=== PATIENT | male | born 1975 | race Caucasian/White ===

== ENCOUNTER 2025-01-20 11:53 | Observation (INO) | payer OTHER, SELFPAY ==
[2025-01-20] VITALS (31 sets, daily range): BP systolic 125–178; BP diastolic 80–108; PULSE 60–88; TEMP 36.5–36.8; O2SAT 68–100; BMI 47.4; BMI 46.8
--- NOTE | 2025-01-20 12:21 | CT_ITS ---
The [address] [address] Patient Name: ANI RAMAN MRN: [id number] date: 1975 Sex: M Assigned Patient Location: ED.MAIN Current Patient Location: ED.MAIN Accession/Order Number: [id number] Exam Date: 01/20/2025 13:12 Report Date: 01/20/2025 13:57 At the request of: MICHAEL ALVARENGA Procedure: CT angio head CT angio head 01/20/2025 1:24 PM SIGNS AND SYMPTOMS: ^altered mental status CONTRAST: 100 mL of intravenous Omnipaque 350 TECHNIQUE: Multi-detector CT angiography axial slices of the head were obtained before and during intravenous administration of IV contrast material. Sagittal, coronal, and 3-D reconstructions were performed and viewed on a separate workstation. CT was performed with one or more of the following dose reduction techniques: Automated exposure control, adjustment of the mA and/or kV according to patient size, or use of iterative reconstruction technique. Stenoses were measured using the NASCET criteria. COMPARISON: 01/20/2025 FINDINGS: The superior cerebellar arteries, posterior inferior cerebellar arteries, and the basilar artery are within normal limits. The posterior cerebral arteries are unremarkable. The intracranial segments of the internal carotid arteries are within normal limits. There are normal anterior and middle cerebral arteries. Anterior communicating artery is patent. The left posterior communicating artery is hypoplastic. This is a normal variant. The deep venous system and dural venous systems appear to be patent. No bony abnormalities are appreciated. CT/CT angio head IMPRESSION: No evidence of focal stenosis, aneurysmal dilatation, dissection or occlusion. Impression dictated by: Luis Felipe Zee M.D. 01/20/2025 1:57 PM Dictation Location: [place] [address] Electronically authenticated by: [id number] Y Date: 01/20/2025 13:57
--- NOTE | 2025-01-20 12:21 | CT_ITS ---
The [address] [address] Patient Name: ANI RAMAN MRN: [id number] date: 1975 Sex: M Assigned Patient Location: ER Current Patient Location: .MAIN Accession/Order Number: [id number] Exam Date: 01/20/2025 13:12 Report Date: 01/20/2025 13:38 At the request of: MICHAEL ALVARENGA Procedure: CT head/brain wo con CT BRAIN WITHOUT CONTRAST: CLINICAL HISTORY: altered mental status COMPARISON: None TECHNIQUE: Contiguous axial unenhanced images were obtained through the brain. This CT exam was performed using one or more following dose reduction techniques: Automated exposure control, adjustment of the mA and/or kV according to patient size, or use of iterative reconstruction technique. FINDINGS: There is no evidence of midline shift, intra or extra-axial fluid collection, hemorrhage or CT evidence of stroke. Cortical atrophy with chronic microvascular ischemic changes. There appears to be an indeterminate hypodensity involving the right basal ganglia. Posterior fossa appears unremarkable. Visualized intraorbital contents demonstrate no acute findings. Visualized paranasal sinuses are clear. The surrounding soft tissues are normal. CT/CT head/brain wo con IMPRESSION: INDETERMINATE HYPODENSITY INVOLVING THE RIGHT BASAL GANGLIA. IF ISCHEMIA IS OF CLINICAL CONCERN, FURTHER EVALUATION WITH MRI IS SUGGESTED. Impression dictated by: Roderick Avery Jr., D.O. 01/20/2025 1:38 PM Dictation Location: [place] [address] Electronically authenticated by: [id number] Y Date: 01/20/2025 13:38
--- NOTE | 2025-01-20 12:21 | ECG_ITS ---
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 Measurements Intervals [place] Rate: 77 P: 53 [place]: 162 QRS: 80 QRSD: 98 T: 51 QT: 394 QTc: 426 Interpretive Statements 1100 Sinus rhythm 9110 normal ECG No previous ECG available for comparison Electronically Signed On 01-21-2025 7:31:07 EDT by EARNEST TABARES M.D.
[2025-01-20] MEDS: 0.9 % SODIUM CHLORIDE 1,000 ML 1000 ML IV (12:36)
--- NOTE | 2025-01-20 12:38 | ED.AMS1 ---
HPI - Altered Mental Status General Chief Complaint: Altered Mental Status Stated Complaint: confusion Time Seen by Provider: 01/20/25 12:05 Source: patient Mode of arrival: walk-in History of Present Illness HPI narrative: 49-year-old male with history of obesity, depression, PTSD, hypertension, hyperlipidemia, and seasonal allergies presents to the ED with a new-onset dissociative sensation starting early this morning.. He describes the feeling as being outside of reality and perceiving a delay between what he sees and hears. He also reports feeling as though he is floating. He denies visual or auditory hallucinations, weakness, numbness, speech difficulty, dizziness, headache, chest pain, shortness of breath, or recent head injury. He reports regular alcohol use (approx 6 drinks nightly, last drink midnight last night), nightly trazodone use, and nightly THC gummies (no recent brand/type change). No recent medication or supplement changes. He has a history of elevated bilirubin, attributed to a likely genetic cause, without known liver disease. He has been awake for >19 hours with decreased fluid intake. He reports drinking his usual daily coffee more quickly than normal this morning. No fever, chills, or recent illness. He is in town traveling for work, staying in a hotel, and is here alone. He expresses concern about the new symptoms, which he has never experienced before. Related Data Home Medications ?Medication ?Instructions ?Recorded ?Confirmed atorvastatin 40 mg tablet 40 mg PO DAILY 01/20/25 01/20/25 finasteride 1 mg tablet 1 mg PO DAILY 01/20/25 01/20/25 fluoxetine 40 mg capsule 40 mg PO DAILY 01/20/25 01/20/25 hydroxyzine HCl 50 mg tablet 50 mg PO BEDTIME 01/20/25 01/20/25 metoprolol tartrate 100 mg tablet 200 mg PO DAILY 01/20/25 01/20/25 (Lopressor) montelukast 10 mg tablet 10 mg PO DAILY 01/20/25 01/20/25 tirzepatide (weight loss) 15 15 mg subcut QWEEK 01/20/25 01/20/25 mg/0.5 mL subcutaneous pen injector (Zepbound) Allergies Allergy/AdvReac Type Severity Reaction Status Date / Time erythromycin base Allergy Rash Verified 01/20/25 12:00 [facility] Medical History (Updated 01/20/25 @ 17:27 by Isabela Bell RN) H/O ETOH abuse ?F10.11 - Alcohol abuse, in remission (ICD-10) High triglycerides ?E78.1 - Pure hyperglyceridemia (ICD-10) PTSD (post-traumatic stress disorder) ?F43.10 - Post-traumatic stress disorder, unspecified (ICD-10) Hypertension ?I10 - Essential (primary) hypertension (ICD-10) Social History (Updated 01/20/25 @ 18:49 by Shivani Watters) Within the past year, how often did you have a drink containing alcohol: 4 or more times a week Within the past year, how many standard drinks containing alcohol did you have on a typical day: 5 or 6 Within the past year, how often did you have six or more drinks on one occasion: monthly Total score: 6 Score interpretation: A score of 4 or more indicates drinking is likely to affect patient's safety. Smoking status: Former smoker Non-prescribed substance use: cannabis (any form) Non-prescribed substance use details: 50mg gummies. Once a day at night Highest level of school completed/degree received: Master's degree In a typical week, how many times do you talk on the telephone with family, friends, or neighbors: 3 or more times per week How often do you get together with friends or relatives: once per week How often do you attend restorationist or temple services: 1-3 times per year Do you belong to any clubs or organizations such as restorationist groups unions, fraternal or athletic groups, or school groups: yes Little interest or pleasure in doing things: not at all Feeling down, depressed, or hopeless: not at all Feel stressed/tense/nervous/anxious/difficulty sleeping: to some extent Exam Narrative Exam Narrative: General: Alert, oriented ?4, interactive, in no acute distress Neuro: No focal deficits. Speech fluent, cranial nerves II?XII intact, strength 5/5 throughout, sensation intact, coordination normal, normal gait. HEENT: Pupils equal, round, reactive to light; no nystagmus Cardiac: Regular rate and rhythm, no murmurs Respiratory: Lungs clear to auscultation bilaterally Abdomen: Soft, non-tender, non-distended Extremities: Good pulses, good cap refill, no edema Skin: No rash, no jaundice noted Constitutional Vital Signs, click to edit/add: Last Vital Signs Temp 98.2 F 01/20/25 17:56 Pulse 73 01/20/25 20:00 Resp 18 01/20/25 17:56 BP 162/90 H 01/20/25 18:07 Pulse Ox 94 L 01/20/25 17:56 O2 Del Method Room Air 01/20/25 17:56 Course Vital Signs Vital signs: Vital Signs Temperature 98.2 F 01/20/25 12:00 Pulse Rate 83 01/20/25 12:00 Respiratory Rate 18 01/20/25 12:00 Blood Pressure 178/108 H 01/20/25 12:00 Pulse Oximetry 97 01/20/25 12:00 Oxygen Delivery Method Room Air 01/20/25 12:00 Temperature 98.2 F 01/20/25 17:56 Pulse Rate 73 01/20/25 20:00 Respiratory Rate 18 01/20/25 17:56 Blood Pressure 162/90 H 01/20/25 18:07 Pulse Oximetry 94 L 01/20/25 17:56 Oxygen Delivery Method Room Air 01/20/25 17:56 MDM - Altered Mental Status MDM Narrative Medical decision making narrative: This patient presents with acute onset dissociative sensation and perception changes without objective neurologic deficits on exam. 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 causes: acute ischemic stroke/TIA (particularly affecting basal ganglia or thalamus), seizure or postictal state (no history of seizure or seizure like activity), metabolic encephalopathy (normal labs), brain tumor or space occupying lesion, aneurysm (normal CTA) Toxic/metabolic: alcohol withdrawal or intoxication (unlikely with negative ethanol), THC effects, trazodone interaction, electrolyte abnormalities, hepatic encephalopathy (unlikely with normal labs) Psychiatric: derealization episode, anxiety/panic-related dissociation, PTSD Other: sleep deprivation, dehydration, medication or caffeine effect Workup today included CBC, CMP, urine tox, ethanol level, all of which were unremarkable except for positive THC. CT head revealed an area of hypoattenuation in the basal ganglia concerning for possible ischemic change. Discussed case with stroke neurology, who recommended admission for further workup and MRI brain. No concern for the need for stroke intervention Patient is hemodynamically stable, neurologically intact on exam, and agrees with plan for admission for MRI and neurologic monitoring. Medical Records Attestation: I reviewed the patient's medical records. Lab Data Attestation: I reviewed the patient's lab results. Labs: Lab Results 01/20/25 01/20/25 01/20/25 Range/Units 12:12 12:17 12:52 WBC 6.4 (4.0-11.0) 10^3/uL RBC 4.70 (4.70-6.10) 10^6/uL Hgb 14.4 (14.0-18.0) g/dL Hct 41.8 L (42.0-54.0) % MCV 88.9 (80.0-94.0) fL MCH 30.6 (25.9-34.0) pg MCHC 34.4 (29.9-35.2) g/dL RDW 12.4 (11.0-15.0) % Plt Count 192 (150-450) 10^3/uL MPV 10.7 (9.5-13.5) fL Neut % (Auto) 42.8 L (43.0-75.0) % Lymph % (Auto) 44.7 (20.5-60.0) % [place] % (Auto) 10.0 (1.7-12.0) % Eos % (Auto) 1.7 (0.9-7.0) % Baso % (Auto) 0.6 (0.2-2.0) % Neut # (Auto) 2.7 (1.4-6.5) 10^3/uL Lymph # (Auto) 2.9 (1.2-3.8) 10^3/uL [place] # (Auto) 0.6 (0.3-0.8) 10^3/uL Eos # (Auto) 0.1 (0.0-0.7) 10^3/uL Baso # (Auto) 0.0 (0.0-0.1) 10^3/uL Abs Immat Gran (auto) 0.01 (0.00-0.03) 10^3/uL Imm/Tot Granulo (auto) 0.2 (0.0-0.5) % PT 10.9 (9.0-11.6) sec INR 1.03 Sodium 134 L (136-145) mmol/L Potassium 4.3 (3.5-5.1) mmol/L Chloride 98 (98-107) mmol/L Carbon Dioxide 26.7 (21.0-32.0) mmol/L Anion Gap 13.6 BUN 8.0 (7.0-18.0) mg/dL Creatinine 1.11 (0.70-1.30) mg/dL Est GFR ( Amer) >60 (>=60 mL/min/1.73m^2) Est GFR (Non-Af Amer) >60 (>=60 mL/min/1.73m^2) BUN/Creatinine Ratio 7.2 Glucose 138 H (74-106) mg/dL Calcium 9.2 (8.5-10.1) mg/dL Magnesium 2.0 (1.8-2.4) mg/dL Total Bilirubin 1.4 H (0.2-1.0) mg/dL AST 30 (15-37) U/L ALT 51 (16-63) U/L Alkaline Phosphatase 67 (46-116) U/L Ammonia 22 (11-32) umol/L Troponin I High Sens 5.6 (4.0-76.1) pg/mL Total Protein 8.2 (6.4-8.2) g/dL Albumin 4.7 (3.4-5.0) g/dL Globulin 3.5 g/dL Albumin/Globulin Ratio 1.3 TSH 2.646 (0.358-3.740) uIU/mL Urine Color Yellow (YELLOW) Urine Clarity Clear (CLEAR) Urine pH 6.0 (5.0-9.0) Ur Specific [place] 1.010 (1.005-1.025) Urine Protein Negative (NEG/TRACE) mg/dL Urine Glucose (UA) Negative (NEGATIVE) mg/dL Urine Ketones Negative (NEGATIVE) mg/dL Urine Occult Blood Negative (NEGATIVE) Urine Nitrite Negative (NEGATIVE) Urine Bilirubin Negative (NEGATIVE) Urine Urobilinogen 0.2 (0.2-1.0) EU/dL Ur Leukocyte Esterase Negative (NEGATIVE) Urine RBC 0-2 (0-2) #/HPF Urine WBC None seen (NONE SEEN) #/HPF Ur Squamous Epith Cells Rare (NONE/RARE) #/LPF Urine Crystals None seen (None Seen) #/HPF Urine Bacteria Trace A (NONE SEEN) #/HPF Urine Casts None seen (NONE SEEN) #/LPF Urine Mucus None seen (NONE SEEN) Ur Culture Indicated? No Urine Opiates Screen Negative (NEGATIVE) Ur Buprenorphine Scrn Negative (NEGATIVE) Ur Oxycodone Screen Negative (NEGATIVE) Urine Methadone Screen Negative (NEGATIVE) Acetaminophen <2.0 L (10.0-30.0) ug/mL Ur Barbiturates Screen Negative (NEGATIVE) U Tricyclic Antidepress Negative (NEGATIVE) Ur Phencyclidine Scrn Negative (NEGATIVE) Ur Amphetamines Screen Negative (NEGATIVE) U Methamphetamines Scrn Negative (NEGATIVE) U Benzodiazepines Scrn Negative (NEGATIVE) Urine Cocaine Screen Negative (NEGATIVE) U Cannabinoids Screen Positive A (NEGATIVE) Ethanol Quant <3 mg/dL POC Glucose 147 H (74-106) mg/dL Imaging Data CT scan - head: Attestation: I have reviewed the pertinent imaging results. Radiologist's impression: ITS Impressions Head CT 01/20/25 12:21 IMPRESSION: INDETERMINATE HYPODENSITY INVOLVING THE RIGHT BASAL GANGLIA. IF ISCHEMIA IS OF CLINICAL CONCERN, FURTHER EVALUATION WITH MRI IS SUGGESTED. Impression dictated by: Roderick Avery Jr., D.O. 01/20/2025 1:38 PM Dictation Location: [place] [address] Electronically authenticated by: [id number] Y Date: 01/20/2025 13:38 Head CTA 01/20/25 12:21 IMPRESSION: No evidence of focal stenosis, aneurysmal dilatation, dissection or occlusion. Impression dictated by: Luis Felipe Zee M.D. 01/20/2025 1:57 PM Dictation Location: [place] [address] Electronically authenticated by: [id number] Y Date: 01/20/2025 13:57 ECG Data Attestation: ?I have reviewed the pertinent ECG results. ECG interpretation date: 01/20/25 ECG interpretation time: 12:35 Prior ECG tracings: not available for review Interpretation: Patient is EKG shows sinus rhythm with no ST depression or elevation. He has normal intervals with no ectopy. Patient's OK interval is 162, heart rate is 77, QRS 98, QT/QTc of 394/426. Discharge Plan Discharge Chief Complaint: Altered Mental Status Clinical Impression: Altered mental state, Abnormal CT of the head Patient Disposition: Admitted as Observation Time of Disposition Decision: 16:52 Condition: Good Discharge Date/Time: 01/20/25 18:24
[2025-01-20 12:41] LABS: Hematocrit 41.8 % (42.0-54.0); Hemoglobin 14.4 g/dL (14.0-18.0); Immature Granulocytes Abs Auto 0.01 10^3/uL (0.00-0.03); Immature Granulocytes Pct Auto 0.2 % (0.0-0.5); Lymphocytes Absolute Auto 2.9 10^3/uL (1.2-3.8); Mean Corpuscular HGB Conc 34.4 g/dL (29.9-35.2); Mean Corpuscular Hemoglobin 30.6 pg (25.9-34.0); Mean Corpuscular Volume 88.9 fL (80.0-94.0); Platelet Count 192 10^3/uL (150-450); Red Blood Count 4.70 10^6/uL (4.70-6.10); White Blood Count 6.4 10^3/uL (4.0-11.0)
[2025-01-20 12:54] LABS: INR 1.03; Prothrombin Time 10.9 sec (9.0-11.6)
[2025-01-20 12:56] LABS: Ammonia 22 umol/L (11-32)
[2025-01-20 12:58] LABS: Alanine Aminotransferase 51 U/L (16-63); Albumin Globulin Ratio 1.3; Albumin Level 4.7 g/dL (3.4-5.0); Alkaline Phosphatase 67 U/L (46-116); Anion Gap 13.6; Aspartate Amino Transferase 30 U/L (15-37); Blood Urea Nitrogen 8.0 mg/dL (7.0-18.0); Calcium 9.2 mg/dL (8.5-10.1); Carbon Dioxide 26.7 mmol/L (21.0-32.0); Chloride 98 mmol/L (98-107); Estimated GFR (African America >60 (>=60 mL/min/1.73m^2); Estimated GFR (Non-African Ame >60 (>=60 mL/min/1.73m^2); Globulin 3.5 g/dL; Glucose 138 mg/dL (74-106); Potassium 4.3 mmol/L (3.5-5.1); Sodium 134 mmol/L (136-145); Total Protein 8.2 g/dL (6.4-8.2)
[2025-01-20 13:05] LABS: Acetaminophen <2.0 ug/mL (10.0-30.0); Thyroid Stimulating Hormone 2.646 uIU/mL (0.358-3.740)
[2025-01-20 13:08] LABS: Glucose Urine UA NEGATIVE (NEGATIVE)
[2025-01-20 13:16] LABS: Cannabinoid Screen Urine POSITIVE (NEGATIVE); Methamphetamines Screen Urine NEGATIVE (NEGATIVE); Tricyclic Antidepressant Urine NEGATIVE (NEGATIVE)
[2025-01-20 13:17] LABS: Magnesium 2.0 mg/dL (1.8-2.4)
[2025-01-20 13:24] LABS: Cast Seen? NONE SEEN #/LPF (NONE SEEN); Crystals Seen? None Seen #/HPF (None Seen); Urine Culture Indicated NO
--- NOTE | 2025-01-20 18:03 | XR_ITS ---
The [address] [address] Patient Name: ANI RAMAN MRN: [id number] date: 1975 Sex: M Assigned Patient Location: MS Current Patient Location: MS Accession/Order Number: [id number] Exam Date: 01/20/2025 18:10 Report Date: 01/20/2025 20:35 At the request of: CRISTIAN MORENO MD Procedure: XR chest 1V Single frontal view chest CLINICAL HISTORY: TIA COMPARISON: None Unremarkable cardiomediastinal silhouette. Lungs clear. No effusion or pneumothorax. XR/XR chest 1V IMPRESSION: NEGATIVE FOR ACUTE PLEURAL-PARENCHYMAL DISEASE. Impression dictated by: Rafal Mahmood M.D. 01/20/2025 8:35 PM Dictation Location: [place] [address] Electronically authenticated by: [id number] Y Date: 01/20/2025 20:35
[2025-01-20] MEDS: FOLIC ACID 50 MG/10 ML VIAL IVP (18:43)
[2025-01-20] MEDS: ASPIRIN 325 MG TABLET.DR PO (18:43)
[2025-01-20] MEDS: ENOXAPARIN SODIUM 40 MG/0.4 ML SYRINGE SUBQ (18:43)
[2025-01-20] MEDS: THIAMINE HCL 200 MG/2 ML VIAL IVP (23:17)
[2025-01-20] MEDS: ATORVASTATIN CALCIUM 40 MG TABLET 80 MG PO (23:17)
--- NOTE | 2025-01-21 | MR_ITS ---
The [address] [address] Patient Name: ANI RAMAN MRN: [id number] date: 1975 Sex: M Assigned Patient Location: MS Current Patient Location: MS Accession/Order Number: [id number] Exam Date: 01/21/2025 09:45 Report Date: 01/21/2025 10:46 At the request of: CRISTIAN MORENO MD Procedure: MR head/brain wo con MR head/brain wo con 01/21/2025 10:24 AM SIGN AND SYMPTOMS: Altered mental status, previous imaging showing hypodensity in the right basal ganglia. PROTOCOL: Multiplanar multisequence MR images of the brain without contrast COMPARISON: 925 5. FINDINGS: Extra axial spaces: Age appropriate. Hemorrhage: None. Ventricular system: Within normal limits. Basal cisterns: Within normal limits and not effaced. Cerebral parenchyma: T2 and FLAIR hyperintense signal is noted in the periventricular and subcortical white matter. This is nonspecific. Midline shift: None.. Cerebellum: Within normal limits. Brainstem: Within normal limits. OTHER: Calvarium: Normal marrow signal. Vascular system: Satisfactory flow voids within the anterior and posterior circulation. Visualized Paranasal sinuses: Within normal limits. Visualized Orbits: Within normal limits. Visualized upper cervical spine: Within normal limits. Sella and skull base: Within normal limits. MR/MR head/brain wo con IMPRESSION: No acute intracranial pathology. T2 and FLAIR hyperintense signal is noted in the periventricular and subcortical white matter. This is nonspecific. Impression dictated by: Luis Felipe Zee M.D. 01/21/2025 10:46 AM Dictation Location: [place] [address] Electronically authenticated by: [id number] Y Date: 01/21/2025 10:46
[2025-01-21 01:54] VITALS: PULSE 61
[2025-01-21 03:31] VITALS: BP 133/85; PULSE 54; TEMP 36.8; O2SAT 95
[2025-01-21 03:54] VITALS: PULSE 62
[2025-01-21 05:48] VITALS: PULSE 58
[2025-01-21 07:36] VITALS: BP 149/95; PULSE 18; PULSE 60; TEMP 36.5; O2SAT 98
[2025-01-21 07:54] VITALS: PULSE 62
--- NOTE | 2025-01-21 08:00 | CM.NOTE ---
Rounds made with Dr. Oh, discussed with pt reason for admission and plan of care. Pt will get MRI today. Discussed with Dr. Oh pt's status, pt will remain OBS status.
[2025-01-21] MEDS: ASPIRIN 325 MG TABLET.DR PO (08:42)
[2025-01-21] MEDS: METOPROLOL SUCCINATE 100 MG TAB.ER.24H 200 MG PO (08:42)
[2025-01-21] MEDS: FOLIC ACID 1 MG TABLET PO (08:43)
[2025-01-21] MEDS: FLUOXETINE HCL 20 MG CAPSULE PO (08:43)
[2025-01-21] MEDS: THIAMINE HCL 200 MG/2 ML VIAL IVP (08:43)
[2025-01-21] MEDS: MONTELUKAST SODIUM 10 MG TABLET PO (08:43)
--- NOTE | 2025-01-21 08:55 | PM.HP ---
HPI H&P: HPI History of Present Illness Chief complaint: confusion, ALTERED MENTAL STATUS Narrative: Mr. Jones is a 49-year-old gentleman with a history of hypertension, posttraumatic stress syndrome, hyperlipidemia and obesity. Patient came in yesterday reported not feeling well in terms of his visual and sensory perception. He feels that when he looks at objects they would appear not in the expected position and shape. When he tried to enter his password on the keyboard he could not do it completely. He denies any headaches, slurred speech, focal weakness or numbness. No prior history of stroke. No chest pain or palpitation. No abdominal pain. 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 He is from out of town. He drinks 3-4 alcoholic beverages daily. He smokes marijuana for PTSD. He has a medical card. He admitted that he has not been sleeping well and he is scheduled is off. Opioid HPI Opioid Management Most Recent Pain and Opioid Data: Last Pain Assessment 01/20/25, 18:00 Last ORT Total Score 2 01/20/25, 17:56 Last ORT Risk Category Low Risk 01/20/25, 17:56 Ur Phencyclidine Scrn, (NEGATIVE) Negative 01/20/25, 12:52 Review of Systems ROS Status of ROS 10 or more systems reviewed and unremarkable except as noted in history and below PFS PFS Medical History (Updated 01/21/25 @ 08:59 by Yg Oh MD) H/O ETOH abuse ?F10.11 - Alcohol abuse, in remission (ICD-10) High triglycerides ?E78.1 - Pure hyperglyceridemia (ICD-10) PTSD (post-traumatic stress disorder) ?F43.10 - Post-traumatic stress disorder, unspecified (ICD-10) Social History (Updated 01/20/25 @ 18:49 by Shivani Watters) Within the past year, how often did you have a drink containing alcohol: 4 or more times a week Within the past year, how many standard drinks containing alcohol did you have on a typical day: 5 or 6 Within the past year, how often did you have six or more drinks on one occasion: monthly Total score: 6 Score interpretation: A score of 4 or more indicates drinking is likely to affect patient's safety. Smoking status: Former smoker Non-prescribed substance use: cannabis (any form) Non-prescribed substance use details: 50mg gummies. Once a day at night Highest level of school completed/degree received: Master's degree In a typical week, how many times do you talk on the telephone with family, friends, or neighbors: 3 or more times per week How often do you get together with friends or relatives: once per week How often do you attend congregational or methodist services: 1-3 times per year Do you belong to any clubs or organizations such as congregational groups unions, [employer] or athletic groups, or school groups: yes Little interest or pleasure in doing things: not at all Feeling down, depressed, or hopeless: not at all Feel stressed/tense/nervous/anxious/difficulty sleeping: to some extent Meds Home Medications and Allergies Home Medications ?Medication ?Instructions ?Recorded ?Confirmed ?Type atorvastatin 40 mg tablet 40 mg PO DAILY 01/20/25 01/20/25 History finasteride 1 mg tablet 1 mg PO DAILY 01/20/25 01/20/25 History fluoxetine 40 mg capsule 40 mg PO DAILY 01/20/25 01/20/25 History hydroxyzine HCl 50 mg tablet 50 mg PO BEDTIME 01/20/25 01/20/25 History montelukast 10 mg tablet 10 mg PO DAILY 01/20/25 01/20/25 History tirzepatide (weight loss) 15 15 mg subcut QWEEK 01/20/25 01/20/25 History mg/0.5 mL subcutaneous pen injector (Zepbound) metoprolol succinate 200 mg 200 mg PO .qd 01/21/25 01/21/25 History tablet,extended release 24 hr trazodone 150 mg tablet 150 mg PO .qhs 01/21/25 01/21/25 History Allergies Allergy/AdvReac Type Severity Reaction Status Date / Time erythromycin base Allergy Rash Verified 01/20/25 12:00 Exam Narrative Exam Narrative: [pt is awake and alert. oriented to place, time and person, obese HEENT: [place] conjunctiva and NL buccal mucosa Neck: Supple, no tenderness Endocrine: No Thyromegaly. Vascular: No JVD or carotid bruit. Lymphatic: No cervical lymphadenopathy. Chest: CTA no DTP. Heart RRR, no extra sound or murmur. Abd: Soft, no tenderness, no rebound and no rigidity. Increase abd girth therefore clinically I could not exclude the possibility of intra abd mass or organomegaly. LE: No cyanosis or clubbing, no varices or edema. Neuro: A A O. Nl speech, comprehension and attention. Nl and symetrical motor and tone examination through out. Normal comprehension, normal focus, normal speech, normal attention span. No nystagmus. Symmetrical facial musculature. Symmetric motor and tone. No sensory loss. Constitutional Vital Signs, click to edit/add: Last Vital Signs Temp 97.7 F 01/21/25 07:36 Pulse 62 01/21/25 07:54 Resp 18 01/21/25 07:36 BP 149/95 H 01/21/25 07:36 Pulse Ox 98 01/21/25 07:36 O2 Del Method Room Air 01/21/25 07:36 Results Labs Labs: Short CBC 01/20/25 Range/Units 12:17 WBC 6.4 (4.0-11.0) 10^3/uL Hgb 14.4 (14.0-18.0) g/dL Hct 41.8 L (42.0-54.0) % Plt Count 192 (150-450) 10^3/uL BMP 01/20/25 12:17 Sodium 134 L Potassium 4.3 Chloride 98 Carbon Dioxide 26.7 BUN 8.0 Creatinine 1.11 Glucose 138 H Calcium 9.2 Liver Function 01/20/25 Range/Units 12:17 Total Bilirubin 1.4 H (0.2-1.0) mg/dL AST 30 (15-37) U/L ALT 51 (16-63) U/L Alkaline Phosphatase 67 (46-116) U/L Albumin 4.7 (3.4-5.0) g/dL Urine 01/20/25 Range/Units 12:52 Urine Color Yellow (YELLOW) Urine Clarity Clear (CLEAR) Urine pH 6.0 (5.0-9.0) Ur Specific [place] 1.010 (1.005-1.025) Urine Protein Negative (NEG/TRACE) mg/dL Urine Glucose (UA) Negative (NEGATIVE) mg/dL Assessment and Plan Assessment and Plan (1) TIA (transient ischemic attack): (2) Obesity: (3) Hyperlipidemia: Plan Transient visual and sensory disturbance in perception This could be multifactorial. The patient admitted that his sleep pattern is off. Likely disturbed sleep-wake cycle in the setting of patient drinking several alcoholic beverages daily and using marijuana gummy under medical card. CAT scan does show hypoattenuation in the right basal ganglia. Rule out the possibility of acute/subacute cerebral injury NIH stroke is 0. Patient is not a candidate for tPA. No indication for thrombectomy given his 0 NIH score I started the patient on thiamine intravenously in case patient has thiamine deficiency causing [place] encephalopathy I saw patient on aspirin and statin. I requested MRI of the brain. I requested a carotid ultrasound and echocardiogram. Counseling about alcohol consumption Counseling about marijuana use. Counseling about disturbed sleep-wake cycle Daily alcohol consumption. Suspect degree of alcohol dependency. Start patient on thiamine and folic acid Monitor for potential withdrawal syndrome. Hypertension Patient is on Toprol-XL 200 mg daily Continue med. Hyperlipidemia Continue statin Obesity Patient has done well thus far. He lost 50 pounds over the last several months on GLP-1 I encouraged him to continue efforts
--- NOTE | 2025-01-21 10:00 | CM.NOTE ---
Spoke with patient regarding PCP and f/u needed. Pt does live in [place] and will f/u with Latonia Arreola NP. Med-Surg secretary of state will schedule appointment. Pt active and denies needs at discharge, pt in [place] for work and staying at Hotel at this time.
== END 2025-01-21 15:02 | disposition home health service (06) ==
LOC: ER 16:52 → MS 17:52
PROVIDERS: Physician Assistant; Admitting Provider Internal Medicine; Emergency Provider Emergency Medicine; Visit Provider Internal Medicine
DX: G45.9 Transient cerebral ischemic attack, unspecified (principal); E66.9 Obesity, unspecified; I10 Essential (primary) hypertension; F43.10 Post-traumatic stress disorder, unspecified; E78.5 Hyperlipidemia, unspecified; J30.2 Other seasonal allergic rhinitis; Z87.891 Personal history of nicotine dependence; R41.82 Altered mental status, unspecified; R93.0 Abnormal findings on diagnostic imaging of skull and head, not elsewhere classified; F10.90 Alcohol use, unspecified, uncomplicated; Z68.42 Body mass index [BMI] 45.0-49.9, adult
CPT/HCPCS: 36415; 70450; 70496; 70551; 71045; 80053; 80307; 80320; 80329; 81001; 82140; 83735; 84443; 84484; 85025; 85610; 93005; 93880; 96361; 96372; 96374; 96375; 96376; 97162; 97165; 99285; G0378; J1650; J3411; Q9967